=== PATIENT | female | born 2000 ===

== ENCOUNTER 2018-09-02 22:04 | Outpatient (CLI) | payer OTHER | END 2018-09-02 23:37 | disposition home or self-care (01) | LOC: M LDO 22:04 | DX: O47.1 False labor at or after 37 completed weeks of gestation (principal); Z3A.39 39 weeks gestation of pregnancy | CPT/HCPCS: 59025 ==

== ENCOUNTER 2018-09-03 02:11 | Inpatient (IN) | payer OTHER ==
[2018-09-03] MEDS ORDERED: MEASLES,MUMPS,RUBELLA VACCINE INJ (MMR-II) (90707) SC (02:45)
[2018-09-03] MEDS ORDERED: RHOGAM 300 MCG (1500 IU) INJ (J2790) IM (02:45)
[2018-09-03] MEDS: OXYTOCIN INJ 10 UNITS/ML VIAL (J2590) IM (02:45)
[2018-09-03] MEDS ORDERED: METOCLOPRAMIDE INJ 10MG/2ML VIAL (J2765) IV (02:45)
[2018-09-03] MEDS ORDERED: IBUPROFEN 800 MG TAB PO (02:45)
[2018-09-03] MEDS: DOCUSATE SODIUM 100 MG CAP PO ×2 (08:58→20:34)
[2018-09-03] MEDS: PRENATAL VITAMINS CHEWABLE TABLET PO (08:58)
[2018-09-03] MEDS: LIDOCAINE 1% MDV 20ML VIAL INFIL (08:59)
[2018-09-03 12:44] LABS: HEMOGLOBIN 11.6 g/dl (12.0-15.5); MEAN CORPUSCULAR HEMOGLOBIN 30.9 pg (27.0-33.0); MEAN CORPUSCULAR HGB CONC 34.1 g/dl (32.0-36.5); MEAN CORPUSCULAR VOLUME 90.4 fl (80.0-96.0); PLATELET COUNT, AUTOMATED 201 10^3/uL (150-450); RED BLOOD COUNT 3.76 10^6/uL (4.00-5.40); RED CELL DISTRIBUTION WIDTH 13.2 % (11.5-14.5); WHITE BLOOD COUNT 17.2 10^3/uL (4.0-10.0)
[2018-09-03] MEDS: ACETAMINOPHEN TAB 650MG DOSE (2X325MG) PO (17:51)
[2018-09-03] MEDS: DIBUCAINE 1% OINTMENT 30GM TOP (18:44)
[2018-09-04] MEDS: DOCUSATE SODIUM 100 MG CAP PO (08:23)
[2018-09-04] MEDS: PRENATAL VITAMINS CHEWABLE TABLET PO (08:23)
== END 2018-09-04 12:02 | disposition home or self-care (01) | DRG 775 ==
LOC: M LDO 02:11 → M LDI 02:16 → M OBS 05:00
PROVIDERS: Obstetrics & Gynecology
PROC: 10E0XZZ Delivery of Products of Conception, External Approach (ICD-10-PCS; principal; 2018-09-03)
PROC: 0HQ9XZZ Repair Perineum Skin, External Approach (ICD-10-PCS; 2018-09-03)
DX: O70.0 First degree perineal laceration during delivery (principal); Z3A.39 39 weeks gestation of pregnancy; Z37.0 Single live birth